=== PATIENT | female | born 1990 | race African-American/Black ===

== ENCOUNTER 2017-10-28 15:34 | Emergency (ER) | payer SELFPAY ==
[2017-10-28 17:18] LABS: Bilirubin Negative (Negative); Blood, Urine Negative (Negative); Glucose, Urine (Dipstick) Negative (Negative); Ketone, Urine Negative (Negative); Nitrite Negative (Negative); Protein, Urine (Dipstick) Negative (Neg-Trace)
[2017-10-28 17:20] LABS: Bacteria/HPF 2+ HPF (None Seen); Hyaline Casts/LPF 4-6 HYALINE CAST LPF (0-3 Hyaline); RBC/HPF None Seen HPF (0-3); Squamous Epithelial 21-50 HPF (0-3)
--- NOTE | 2017-10-28 17:44 | RAD ---
CERVICAL SPINE RADIOGRAPHS THREE VIEWS 10/28/17 PROVIDED CLINICAL HISTORY: Neck pain. FINDINGS: There is reversal of the normal cervical lordosis. Cervical alignment appears otherwise normal. Verte bral body heights appear preserved. No evidence for fracture. No prevertebral soft tissue swelling a pparent. The visualized lung apices appear clear. IMPRESSION: No evidence for fracture or traumatic subluxation. POS: [facility]
[2017-10-28] MEDS ORDERED: Dexamethasone 4 mg/ml Vial ONE (18:11)
[2017-10-28] MEDS ORDERED: Ketorolac Tromethamine 30 MG/ML VIAL ONE (18:11)
[2017-10-28] MEDS ORDERED: Cyclobenzaprine 10 MG TAB ONE (18:11)
== END 2017-10-28 19:06 | disposition home or self-care (01) ==
LOC: ERS 15:34
DX: M54.2 Cervicalgia (principal); N39.0 Urinary tract infection, site not specified; I10 Essential (primary) hypertension; X50.0XXA Overexertion from strenuous movement or load, initial encounter
CPT/HCPCS: 72040; 81003; 81015; 81025; 87086; 96372; J1100; J1885